=== PATIENT | female | born 1955 | race Two or more races ===

== ENCOUNTER 2025-02-07 15:08 | Emergency (ER) | payer OTHER ==
[~2025-02-07] VITALS: Ht 167.6 cm; Wt 62.0 kg
[2025-02-07 15:10] VITALS: O2SAT 100
[2025-02-07] MEDS ORDERED: ONDANSETRON 4MG ODT PO ONE (15:45)
[2025-02-07] MEDS ORDERED: KETOROLAC 15MG/ML VIAL IM ONE (15:45)
[2025-02-07 16:05] LABS: HEMATOCRIT. 37.7 % (36.0-48.0); HEMOGLOBIN. 12.8 g/dL (12.0-16.0); MEAN PLATELET VOLUME 7.9 fl (7.4-10.4); PLATELET 324 x1000/uL (130-400); RED BLOOD CELL COUNT 4.22 mill/uL (4.2-5.4); RED CELL DISTRIBUTION WIDTH 13.7 % (11.6-14.6)
[2025-02-07] MEDS: SODIUM CHLORIDE 0.9% 1,000 ML IV ONE (16:14)
[2025-02-07] MEDS: FAMOTIDINE 20MG TABLET PO ONE (16:18)
[2025-02-07] MEDS: ONDANSETRON HCL 4MG/2ML INJ IV ONE (16:18)
[2025-02-07] MEDS: MAGNESIUM/ALUMINUM HYDROXIDE/SIMETHICONE 30ML UDC PO ONE (16:18)
[2025-02-07 16:19] LABS: CREATININE 0.8 mg/dL (0.6-1.0); UREA NITROGEN BLOOD 9 mg/dL (9-23)
[2025-02-07 16:21] LABS: ASPARTATE AMINOTRANSFERASE 18 IU/L (<34); BILIRUBIN DIRECT 0.3 mg/dL (<=3.0); BILIRUBIN TOTAL 0.9 mg/dL (0.1-1.0); PROTEIN TOTAL 7.2 g/dL (6.0-8.3)
[2025-02-07] MEDS: KETOROLAC 30MG/ML VIAL IV ONE (16:22)
[2025-02-07] MEDS: KCL 10MEQ/50ML PREMIX 50 ML IV SCH (17:26)
[2025-02-07] MEDS: METOCLOPRAMIDE HCL 10MG/2ML VIAL IV ONE (17:41)
[2025-02-07 18:26] LABS: LYMPHOCYTES % MANUAL 6.0 % (20.0-60.0); MONOCYTES % MANUAL 3.0 % (2.0-8.0); NEUTROPHILS % MANUAL 91.0 % (45.0-75.0); PLATELET ESTIMATE NORMAL
[2025-02-07] MEDS: PIPERACILLIN/TAZO 3.375G/50ML 50 ML IV STA (18:48)
[2025-02-07 19:20] VITALS: BP 159/72; PULSE 68; RESP 12; TEMP 37.2; O2SAT 97
[2025-02-07 19:44] LABS: CLARITY URINE CLOUDY (CLEAR); COLOR URINE DARK YELLOW (YELLOW); GLUCOSE URINE NEGATIVE (NEGATIVE); KETONES URINE 4+ (NEGATIVE); LEUKOCYTE ESTERASE URINE TRACE (NEGATIVE); NITRITE URINE NEGATIVE (NEGATIVE); OCCULT BLOOD URINE NEGATIVE (NEGATIVE); PH URINE 5.5 (4.5-8.0); PROTEIN URINE 2+ (NEGATIVE); SPECIFIC GRAVITY URINE 1.027 (1.005-1.030); UROBILINOGEN URINE 1.0 E.U./dL (0.2-1.0)
[2025-02-07 19:51] LABS: *AMPHETAMINES SCREEN URINE NEGATIVE (NEGATIVE); *BARBITURATES SCREEN URINE NEGATIVE (NEGATIVE); *BENZODIAZEPINES SCREEN URINE NEGATIVE (NEGATIVE); *COCAINE SCREEN URINE NEGATIVE (NEGATIVE); CANNABINOID URINE SCREEN PRESUMPTIVE POSITIVE (NEGATIVE); ECSTASY MDMA SCREEN URINE NEGATIVE (NEGATIVE); METHADONE URINE SCREEN NEGATIVE (NEGATIVE); OPIATES URINE SCREEN NEGATIVE (NEGATIVE); PHENCYCLIDINE URINE SCREEN NEGATIVE (NEGATIVE)
[2025-02-07 20:08] LABS: BACTERIA URINE 2+; RBC URINE NONE SEEN /hpf (0-2); SQUAMOUS EPITHELIAL CELL URINE 3+ /lpf (RARE/1+)
[2025-02-07 20:11] LABS: MUCUS URINE 2+ /lpf (< = 2+)
== END 2025-02-07 20:00 | disposition short-term general hospital (02) ==
LOC: ER 15:08 → CANBEDREQ 18:25 → ER 20:00
DX: K52.9 Noninfective gastroenteritis and colitis, unspecified (principal); R11.10 Vomiting, unspecified; I10 Essential (primary) hypertension; Z88.5 Allergy status to narcotic agent; Z90.710 Acquired absence of both cervix and uterus; Z91.040 Latex allergy status; Z79.899 Other long term (current) drug therapy
CPT/HCPCS: 80076; 80305; 80048; 81003; 80320; 83605; 83690; 85025; 87040; 36415; 84145; 74176; 96361; 96365; 96375; 99291; J1885; J2765; J2405; J2543; J3480; J7030; A4606; G0480